=== PATIENT | female | born 1945 | race African-American/Black ===

== ENCOUNTER 2021-02-16 04:40 | Day surgery (SDC) | payer OTHER ==
[2021-02-15 15:05] VITALS: BMI 25.9
[2021-02-16 09:01] VITALS: TEMP 97.9
[2021-02-16 09:02] VITALS: PULSE 66
[2021-02-16 09:24] VITALS: BP 127/74
== END 2021-02-16 09:46 | disposition home or self-care (01) ==
LOC: JASU-ENDO 04:40
PROVIDERS: ATTEND Internal Medicine Gastroenterology
PROC: 0DJD8ZZ Inspection of Lower Intestinal Tract, Via Natural or Artificial Opening Endoscopic (ICD-10-PCS; principal; 2021-02-16 08:23)
DX: Z12.11 Encounter for screening for malignant neoplasm of colon (principal); K57.30 Diverticulosis of large intestine without perforation or abscess without bleeding; K64.8 Other hemorrhoids; R19.5 Other fecal abnormalities

== ENCOUNTER 2021-07-20 04:38 | Day surgery (SDC) | payer OTHER ==
[2021-07-19 08:42] VITALS: BMI 26.0
[2021-07-20 09:28] VITALS: TEMP 97
[2021-07-20 14:00] VITALS: BP 127/58; PULSE 83
== END 2021-07-20 12:20 | disposition home or self-care (01) ==
LOC: JASU-ENDO 04:38
PROVIDERS: ATTEND Internal Medicine Gastroenterology
PROC: 0DB98ZX Excision of Duodenum, Via Natural or Artificial Opening Endoscopic, Diagnostic (ICD-10-PCS; principal; 2021-07-20 08:45)
DX: C17.0 Malignant neoplasm of duodenum (principal)